=== PATIENT | male | born 1990 | race Caucasian/White ===

== ENCOUNTER 2019-10-02 09:22 | Emergency (ER) | payer OTHER ==
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
[2019-10-02 11:00] VITALS: BP 144/76
== END 2019-10-02 10:55 | disposition home or self-care (01) ==
LOC: ER 09:22
DX: M54.41 Lumbago with sciatica, right side (principal); V49.40XA Driver injured in collision with unspecified motor vehicles in traffic accident, initial encounter; F17.200 Nicotine dependence, unspecified, uncomplicated
CPT/HCPCS: 72110; 99283